=== PATIENT | female | born 1960 ===

== ENCOUNTER → 2021-05-18 | Outpatient (CLI) | payer MEDICAID | END | disposition home or self-care (01) | LOC: Rad HDHVI 08:52 | PROVIDERS: ATTEND Internal Medicine Cardiovascular Disease | DX: R00.2 Palpitations (principal); I10 Essential (primary) hypertension | CPT/HCPCS: 93306 ==

== ENCOUNTER → 2021-05-22 | Outpatient (CLI) | payer MEDICAID ==
[~2021-05-22] VITALS: Ht 157.5 cm; Wt 69.9 kg
== END | disposition home or self-care (01) ==
LOC: Rad HDHVI 08:55
PROVIDERS: ATTEND Internal Medicine Cardiovascular Disease
DX: I20.0 Unstable angina (principal); R00.2 Palpitations; I10 Essential (primary) hypertension; E78.5 Hyperlipidemia, unspecified; R07.89 Other chest pain; Z82.49 Family history of ischemic heart disease and other diseases of the circulatory system
CPT/HCPCS: 78452; 93017; 96374; A9500

== ENCOUNTER 2024-10-19 03:24 | Emergency (ER) | payer OTHER, MEDICAID ==
[~2024-10-19] VITALS: Ht 157.5 cm; Wt 74.9 kg
--- NOTE | 2024-10-19 03:45 | ED.PDOC ---
History of Present Illness HPI Comments 64-year-old female presents with a chief complaint of palpitations, neck pain, sensation of bilateral legs being asleep which has resolved. Patient states that at home her BP was reading 181/92 and started to have pain in her neck and felt palpitations. Patient denies any chest pain , shortness of breath. Patient mentions that she has been compliant with her medication at home. Time Seen by MD: 03:30 Reviewed Notes: Medications, Allergies Allergies: Coded Allergies: NO KNOWN ALLERGIES (Unverified , 10/19/24) Information Source: Patient Mode of Arrival: Ambulatory Severity: Moderate Timing: Hours Duration: Since onset Prehospital treatment: None Vital Signs Vital Signs Date Time Temp Pulse Resp B/P (MAP) Pulse Ox O2 Delivery O2 Flow Rate FiO2 10/19/24 04:28 16 98 Room Air* 0 21 10/19/24 04:27 97 10/19/24 04:20 98.2 150/87 (108) 98.2 Physical Exam General: Awake, alert and oriented. No acute distress. Skin: Skin in warm, dry and intact. Appropriate color for ethnicity. HEENT: The head is normocephalic and atraumatic. Conjunctivae are clear without exudates or hemorrhage. Sclera is non-icteric. EOM are intact. No signs of nystagmus. Eyelids are normal in appearance without swelling or lesions. Oral mucosa is pink and moist Neck: The neck is supple with normal range of motion. No JVD. No neck tenderness. Patient reports left-sided neck pain with head rotation to the right. Cardiac: Heart rate and rhythm are normal. No murmurs, gallops, or rubs are auscultated. Respiratory: No signs of respiratory distress. Lung sounds are clear in all lobes bilaterally without rales, rhonchi, or wheezes. Abdominal: Abdomen is soft, non-tender without distention. Bowel sounds are present and normoactive in all four quadrants. Extremities: Upper and lower extremities are atraumatic in appearance without deformity or edema. Neurological: The patient is awake, alert and oriented to person, place, and ti me with normal speech. Speech is clear. There is no facial asymmetry. Sensation intact. Normal gait. Psychiatric: Appropriate mood and affect. Good judgement and insight. Review of Systems: REVIEW OF SYSTEMS: No fever, no chills, or fatigue HEENT: No sore throat, no earache, no congestion, no neck pain. Cardiac: No chest pain. No palpitations. Lungs: No shortness of breath, no cough. GI: No nausea, no vomiting, no diarrhea, no constipation, no abdominal pain : No dysuria, frequency, or urgency. No hematuria. Musculoskeletal: No joint pain , no joint swelling, no extremity edema. Positive left-sided neck pain Skin: No rash, no itching. Neuro: No headache, no dizziness, no weakness. Positive bilateral lower extremity paresthesias which has resolved Past Medical History PAST MEDICAL HISTORY: Anxiety Surgical History: Denies all surgeries COLOR RECEIVER History: Denies all COLOR RECEIVER Hx Family History Family History: Reviewed,noncontributory to illness Social History Smoker: Non-Smoker Alcohol: Denies ETOH Use Drugs: Denies Drug Use Lives In: Home Was a procedure done? Was a procedure done?: No EKG EKG : Pulse Rate (adult): 97 Cardiac Rhythm: NSR Comments No STEMI Differential Dx Considerations may include: Hypertensive urgency, hypertensive emergency, elevated blood pressure, essential hypertension, cardiac arrhythmia, acute coronary syndrome, CVA, carotid artery dissection, aortic dissection, pulmonary embolism, other X-Ray, Labs, Meds, VS Vital Signs Date Time Temp Pulse Resp B/P (MAP) Pulse Ox O2 Delivery O2 Flow Rate FiO2 10/19/24 04:28 16 98 Room Air* 0 21 10/19/24 04:27 97 10/19/24 04:20 98.2 98 16 150/87 (108) 98 98.2 10/19/24 03:43 97 10/19/24 03:35 98.1 100 16 141/80 (100) 97 98.1 Lab Test 10/19/24 04:49 10/19/24 03:50 Range/Units Troponin I High Sensitivity 11 6 </=34 ng/L White Blood Count 7.1 4.4-10.8 10^3/uL Red Blood Count 4.45 4.0-5.20 10^6/uL Hemoglobin 13.8 12.2-16.2 g/dL Hematocrit 39.8 36.0-46.0 % Mean Corpuscular Volume 89.5 80.0-100.0 fL Mean Corpuscular Hemoglobin 31.1 28.0-32.0 pg Mean Corpuscular Hemoglobin Concent 34.7 32.0-36.0 g/dL Red Cell Distribution Width 13.9 11.8-14.3 % Platelet Count 242 140-450 10^3/uL Mean Platelet Volume 8.9 6.9-10.8 fL Neutrophils (%) (Auto) 54.4 37.0-80.0 % Lymphocytes (%) (Auto) 33.8 10.0-50.0 % Monocytes (%) (Auto) 8.9 0.0-12.0 % Eosinophils (%) (Auto) 2.6 0.0-7.0 % Basophils (%) (Auto) 0.3 0.0-2.0 % Neutrophils # (Auto) 3.8 1.6-8.6 10 ^3/uL Lymphocytes # (Auto) 2.4 0.4-5.4 10 ^3/uL Monocytes # (Auto) 0.6 0-1.3 10 ^3/uL Eosinophils # (Auto) 0.2 0-0.8 10 ^3/uL Basophils # (Auto) 0 0-0.2 10 ^3/uL Nucleated Red Blood Cells 0.1 % Sodium Level 140 136-145 mmol/L Potassium Level 3.4 L 3.5-5.1 mmol/L Chloride Level 106 98-107 mmol/L Carbon Dioxide Level 26 20-31 mmol/L Anion Gap 8 5-15 Blood Urea Nitrogen 16 9-23 mg/dL Creatinine 0.75 0.550-1.02 mg/dL Glomerular Filtration Rate Calc 88 >90 mL/min BUN/Creatinine Ratio 21.3 H 10.0-20.0 Serum Glucose 104 74-106 mg/dL Calcium Level 9.9 8.7-10.4 mg/dL Total Bilirubin 0.6 0.2-1.0 mg/dL Aspartate Amino Transferase (AST) 18 13-40 U/L Alanine Aminotransferase (ALT) 19 7-40 U/L Alkaline Phosphatase 67 46-116 U/L B-Type Natriuretic Peptide 15.70 0-100 pg/mL Total Protein 6.9 5.7-8.2 g/dL Albumin 4.3 3.2-4.8 g/dL Current Medications Medications (Trade) Dose Ordered Sig/Marcela Route Start Time Stop Time Status Last Admin Aspirin 324 mg ONCE ONCE PO 10/19/24 03:45 10/19/24 03:46 DC 10/19/24 04:25 Potassium Chloride (Klor-Con Tablet) 40 meq ONCE ONCE PO 10/19/24 05:15 10/19/24 05:21 DC 10/19/24 05:25 Images Reviewed?: Images reviewed and evaluated by me (Independent interpretation of chest x-ray: No acute disease) Time of 1ST Reevaluation: 04:00 Reevaluation 1ST: Unchanged Patient Education/Counseling: Need For Follow Up Family Education/Counseling: No Family Present Departure 1 Departure Time of Disposition: 04:27 Impression: Primary Impression: Hypertension Disposition: 01 HOME / SELF CARE / HOMELESS Condition: Good Additional Instructions: INSTRUCCIONES DE TEA DE Urgencias Instrucciones: Sujata atentamente todas las instrucciones proporcionadas en roxanne paquete. Aunque le hayan dado el tea del Departamento de Emergencias, esto no significa que tenga un "certificado de buena ambar". Hoy no se almanza realizado ningn diagnstico definitivo para jerome sntomas. Es posible que ests en proceso de desarrollar jessee enfermedad grave. Es por eso que debe regresar al servicio de urgencias sin falta si presenta algn sntoma nuevo o que empeora (especialmente si jerome sntomas incluyen dolor en el pecho, dificultad para respirar, dolor abdominal, fiebre, dolor de tyson, confusin, dificultad para soni o caminar). Tambin es muy importante que consulte a un mdico de atencin primaria dentro de los prximos 1 a 3 almeida para realizar un seguimiento. Si no puede conseguir jessee starla, regrese al servicio de urgencias para jessee nueva evaluacin. Hoy tuvo la presin arterial tea. La presin arterial tea sin tratamiento puede tener consecuencias graves. Sin embargo, necesita jessee starla de seguimiento para volver a controlarla y determinar si necesita tratamiento. Programe jessee starla con morrissey mdico de cabecera para esto dentro de la prxima semana. Comments 64-year-old female who presents to the emergency department with elevated blood pressure. EKG negative for signs of ischemia. High sensitivity troponin negative. CXR shows no acute process. There is no focal neuro deficit on exam. Presentation not suggestive of hypertensive emergency, CVA, acute coronary syndrome, pulmonary embolism or aortic dissection. Patient improved at time of discharge. No hypoxia, respiratory distress or dyspnea at discharge. Patient able to ambulate without difficulty. Patient felt stable for discharge home. Patient well-appearing, nontoxic. Advised prompt follow-up with PCP, return to the ED with any new, worsening or concerning symptoms. Critical Care Note Critical Care Time?: No Stability Stability form required: No Heart Score Heart Score: Heart Score Response (Comments) Value History N/A 0 EKG N/A 0 Age N/A 0 Risk Factors N/A 0 Troponin N/A 0 Total 0 I personally scribed for RADHA TURNER MD ([email or web address]) on 10/19/24 at 03:45. Electronically submitted by Michael iSlva ([email or web address]). RADHA TURNER MD October 19, 2024 03:45
--- NOTE | 2024-10-19 03:53 | ECG ---
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
[2024-10-19 04:20] VITALS: BP 150/87; TEMP 98.2
[2024-10-19] MEDS: MORPHINE SULFATE INJ 2 MG/ml SYRG IV ONE (04:20)
[2024-10-19 04:23] LABS: Basophils # (auto) 0 10 ^3/uL (0-0.2); Basophils % (auto) 0.3 % (0.0-2.0); Eosinophils # (auto) 0.2 10 ^3/uL (0-0.8); Eosinophils % (auto) 2.6 % (0.0-7.0); Hematocrit 39.8 % (36.0-46.0); Hemoglobin 13.8 g/dL (12.2-16.2); Lymphocytes # (auto) 2.4 10 ^3/uL (0.4-5.4); Lymphocytes % (auto) 33.8 % (10.0-50.0); Mean Corpuscular Hemoglobin 31.1 pg (28.0-32.0); Mean Corpuscular Hgb Conc. 34.7 g/dL (32.0-36.0); Mean Corpuscular Volume 89.5 fL (80.0-100.0); Monocytes # (auto) 0.6 10 ^3/uL (0-1.3); Monocytes % (auto) 8.9 % (0.0-12.0); Neutrophils # (auto) 3.8 10 ^3/uL (1.6-8.6); Neutrophils % (auto) 54.4 % (37.0-80.0); Nucleated Red Blood Cells % 0.1 %; Platelet Count (auto) 242 10^3/uL (140-450); Red Blood Cells 4.45 10^6/uL (4.0-5.20); Red Cell Distribution Width 13.9 % (11.8-14.3); White Blood Cell 7.1 10^3/uL (4.4-10.8)
[2024-10-19] MEDS: ASPirin 81 mg TAB PO ONE (04:25)
[2024-10-19 04:27] VITALS: PULSE 97
[2024-10-19 04:27] LABS: Alanine Aminotransferase 19 U/L (7-40); Albumin 4.3 g/dL (3.2-4.8); Alkaline Phosphatase 67 U/L (46-116); Anion Gap 8 (5-15); Aspartate Aminotransferase 18 U/L (13-40); BUN/Creatinine Ratio 21.3 (10.0-20.0); Blood Urea Nitrogen 16 mg/dL (9-23); Calcium 9.9 mg/dL (8.7-10.4); Carbon Dioxide 26 mmol/L (20-31); Chloride 106 mmol/L (98-107); Glucose 104 mg/dL (74-106); Sodium 140 mmol/L (136-145); Total Protein 6.9 g/dL (5.7-8.2)
[2024-10-19 04:28] VITALS: RESP 16; O2SAT 98
[2024-10-19 04:28] LABS: Bilirubin, Total 0.6 mg/dL (0.2-1.0); Potassium 3.4 mmol/L (3.5-5.1)
[2024-10-19] MEDS: POTASSIUM CHL 20 Meq TABLET PO ONE (05:25)
--- NOTE | 2024-10-19 05:52 | DVH ---
EXAM: XR Chest, 1 View CLINICAL INDICATION: Hypertension TECHNIQUE: Frontal view of the chest. COMPARISON: None FINDINGS: LUNGS AND PLEURAL SPACES: Unremarkable. No consolidation. No pneumothorax. HEART: Unremarkable. No cardiomegaly. MEDIASTINUM: Unremarkable. Normal mediastinal contour. BONES/JOINTS: Unremarkable. No acute fracture. OTHER FINDINGS: . IMPRESSION: No acute cardiopulmonary process.
== END 2024-10-19 05:51 | disposition home or self-care (01) ==
LOC: ER 03:24
DX: I10 Essential (primary) hypertension (principal); M54.2 Cervicalgia; F41.9 Anxiety disorder, unspecified; R06.02 Shortness of breath
CPT/HCPCS: 36415; 71045; 80053; 83880; 84484; 85025; 93005